=== PATIENT | female | born 1985 | race Caucasian/White ===

== ENCOUNTER 2017-01-06 16:26 | Emergency (ER) | payer OTHER ==
[~2017-01-06] VITALS: Ht 162.6 cm; Wt 107.8 kg
[2017-01-06 17:20] LABS: MCV 88.2 FL (83-99); PLATELET COUNT 232 K/uL (156-360); RBC DIS.WIDTH-CV 12.9 % (11.8-14.6); RBC DIS.WIDTH-SD 41.1 % (39-53); RED BLOOD COUNT 4.76 M/uL (3.80-5.20); WHITE BLOOD COUNT 10.2 K/uL (4.1-10.2)
[2017-01-06 17:36] LABS: CHLORIDE 110 mEq/L (99-109); POTASSIUM 4.3 mEq/L (3.7-5.4)
[2017-01-06 17:37] LABS: SODIUM 142 mEq/L (136-147)
[2017-01-06 17:38] LABS: GLUCOSE 149 mg/dL (70-99)
[2017-01-06 17:40] LABS: ANION GAP 10 MEQ/L (2-14)
[2017-01-06 17:42] LABS: GFR ESTIMATE (CALCULATED) > 59 mL/min/
[2017-01-06 17:43] LABS: UREA NITROGEN (BUN) 14 mg/dL (9-23)
[2017-01-06 17:50] LABS: QUANTITATIVE HCG < 4.0 MIU/ML
[2017-01-06] MEDS ORDERED: PREDNISONE10 MG PO (19:05)
[2017-01-06] MEDS ORDERED: LIDOCAINE HCL120 GM TP (19:06)
[2017-01-06] MEDS ORDERED: FLEXERIL10 MG PO (19:06)
[2017-01-06] MEDS ORDERED: TYLENOL PM1 CAPLET PO (19:06)
[2017-01-06 22:00] VITALS: BP 108/68
== END 2017-01-06 22:35 | disposition short-term general hospital (02) ==
LOC: EME 16:26
PROVIDERS: Emergency Medicine
DX: G83.4 Cauda equina syndrome (principal); J45.909 Unspecified asthma, uncomplicated
CPT/HCPCS: 72148; 80048; 84702; 85027; 99281; 99285; J1100; J1885; J2060; J2270; J2405; J3010; J7030

== ENCOUNTER 2017-01-22 12:52 | Inpatient (IN) | payer OTHER ==
[~2017-01-22] VITALS: Ht 162.6 cm; Wt 106.0 kg
[~2017-01-22 12:52] MED LIST: FLEXERIL10 MG PO; LIDOCAINE HCL120 GM TP; PREDNISONE10 MG PO; TYLENOL PM1 CAPLET PO
[2017-01-22] MEDS ORDERED: OXYCODONE HCL5 MG PO (14:27)
[2017-01-22] MEDS ORDERED: PROAIR HFA8.5 GM IH (14:34)
[2017-01-22] MEDS ORDERED: HYDROMORPHONE HC2 MG PO (14:34)
[2017-01-22 15:18] LABS: EOSINOPHIL (%) 0 % (0-5); HEMATOCRIT 45.5 % (36.0-46.0); IMMATURE GRANULOCYTE (%) 0.5 % (0.0-0.7); IMMATURE GRANULOCYTE COUNT 0.1 K/uL; INSTRUMENT ABS NEUTROPHIL CT 8.7 K/uL; MCH 29.6 PG (29.0-34.0); MCV 89.9 FL (83-99); MONOCYTE (%) 4.9 % (3-12); MONOCYTE COUNT 0.6 K/uL (0-0.8); NEUTROPHIL (%) 76.6 % (45-76); NEUTROPHIL COUNT 8.7 K/uL (1.8-6.4); PLATELET COUNT 236 K/uL (156-360); RBC DIS.WIDTH-CV 12.6 % (11.8-14.6); RBC DIS.WIDTH-SD 41.4 % (39-53); RED BLOOD COUNT 5.06 M/uL (3.80-5.20); WHITE BLOOD COUNT 11.3 K/uL (4.1-10.2)
[2017-01-22 15:29] LABS: CHLORIDE 107 mEq/L (99-109); POTASSIUM 4.4 mEq/L (3.7-5.4); SODIUM 143 mEq/L (136-147)
[2017-01-22 15:31] LABS: GLUCOSE 80 mg/dL (70-99)
[2017-01-22 15:32] LABS: ANION GAP 14 MEQ/L (2-14)
[2017-01-22 15:35] LABS: GFR ESTIMATE (CALCULATED) > 59 mL/min/
[2017-01-22 15:36] LABS: UREA NITROGEN (BUN) 12 mg/dL (9-23)
[2017-01-22] MEDS ORDERED: MELATONIN10 M1 PO (21:17)
[2017-01-22] MEDS ORDERED: TYLENOL REGULA325 MG PO (21:18)
[2017-01-23 02:01] VITALS: BP 108/68
[2017-01-23 03:18] LABS: ADD MIUA? YES; BILIRUBIN NEGATIVE; BLOOD NEGATIVE; COLOR YELLOW ((YELLOW)); GLUCOSE (STRIP) NEGATIVE; KETONES NEGATIVE; LEUKOCYTES NEGATIVE; NITRITE NEGATIVE; PROTEIN (STRIP) NEGATIVE; SPECIFIC GRAVITY 1.026 (1.000-1.030); UROBILINOGEN 0.2 MG/DL (0.2-1.0)
[2017-01-23 03:31] LABS: BACTERIA 1+ /HPF; EPITHELIAL CELLS 1+ /HPF; MUCUS 3+ /LPF; UCUL ADDED? NO; WHITE BLOOD CELLS 0-5 /HPF (0-5)
[2017-01-23 03:57] VITALS: BP 117/65
[2017-01-23 09:29] VITALS: BP 140/85
[2017-01-23 12:55] VITALS: BP 134/84
[2017-01-23] MEDS ORDERED: MACROBID100 MG PO (13:37)
[2017-01-23] MEDS ORDERED: OXAYDO5 MG PO (14:52)
[2017-01-23 16:03] VITALS: BP 125/74
[2017-01-23 20:00] VITALS: BP 131/60
[2017-01-24 03:37] VITALS: BP 123/60
[2017-01-24 07:20] LABS: MCH 29.3 PG (29.0-34.0); MCHC 32.4 G/DL (30.0-36.0); MCV 90.3 FL (83-99); MEAN PLAT.VOLUME 10.5 uM^3 (9.5-12.4); PLATELET COUNT 233 K/uL (156-360); RBC DIS.WIDTH-CV 12.2 % (11.8-14.6); RBC DIS.WIDTH-SD 40.8 % (39-53); RED BLOOD COUNT 4.54 M/uL (3.80-5.20); WHITE BLOOD COUNT 10.7 K/uL (4.1-10.2)
[2017-01-24 07:42] LABS: ANION GAP 5 MEQ/L (2-14); CHLORIDE 105 MEQ/L (99-109); GFR ESTIMATE (CALCULATED) > 59 mL/min/; POTASSIUM 4.3 MEQ/L (3.7-5.4); SAMPLE HEMOLYSIS CHECK 0; SAMPLE ICTERIC CHECK 0; SAMPLE LIPEMIA CHECK 0; SODIUM 136 MEQ/L (136-147); UREA NITROGEN (BUN) 18 mg/dL (9-23)
[2017-01-24 07:43] LABS: GLUCOSE 110 mg/dL (70-99)
[2017-01-24 07:48] VITALS: BP 126/74
[2017-01-24 07:54] VITALS: BP 144/71
[2017-01-24 12:03] VITALS: BP 137/79
[2017-01-24 15:54] VITALS: BP 140/79
== END 2017-01-24 18:12 | disposition home or self-care (01) | DRG 565 ==
LOC: EME 12:52 → EDOF 01-23 01:14 → 5WEST 01-23 01:48
PROVIDERS: Hospitalist; Physician Assistant Medical
DX: D36.10 Benign neoplasm of peripheral nerves and autonomic nervous system, unspecified (principal); N39.0 Urinary tract infection, site not specified; Z68.41 Body mass index [BMI] 40.0-44.9, adult; M54.5 Low back pain; R15.9 Full incontinence of feces; K27.9 Peptic ulcer, site unspecified, unspecified as acute or chronic, without hemorrhage or perforation
CPT/HCPCS: 72158; 80048; 81003; 85025; 85027; 94640; 94640 76; 99202; 99281; 99285; J0696; J1100; J1170; J1200; J1650; J1885; J2060; J2270; J2405; J2930; J3010; J7050

== ENCOUNTER 2017-02-07 19:32 | Emergency (ER) | payer OTHER ==
[~2017-02-07] VITALS: Ht 165.1 cm; Wt 104.5 kg
[~2017-02-07 19:32] MED LIST changes: +HYDROMORPHONE HC2 MG PO; +MACROBID100 MG PO; +MELATONIN10 M1 PO; +OXAYDO5 MG PO; +OXYCODONE HCL5 MG PO; +PROAIR HFA8.5 GM IH; +TYLENOL REGULA325 MG PO
[2017-02-07 22:49] LABS: CHLORIDE 107 mEq/L (99-109); POTASSIUM 3.9 mEq/L (3.7-5.4); SODIUM 139 mEq/L (136-147)
[2017-02-07 22:52] LABS: ANION GAP 11 MEQ/L (2-14); GLUCOSE 86 mg/dL (70-99)
[2017-02-07 22:55] LABS: GFR ESTIMATE (CALCULATED) > 59 mL/min/
[2017-02-07 22:56] LABS: UREA NITROGEN (BUN) 12 mg/dL (9-23)
[2017-02-07 23:05] LABS: QUANTITATIVE HCG < 4.0 MIU/ML
[2017-02-08 00:26] LABS: HEMATOCRIT 40.2 % (36.0-46.0); MCH 29.6 PG (29.0-34.0); MCHC 33.1 G/DL (30.0-36.0); MCV 89.5 FL (83-99); PLATELET COUNT 255 K/uL (156-360); RBC DIS.WIDTH-CV 12.5 % (11.8-14.6); RBC DIS.WIDTH-SD 40.5 % (39-53); RED BLOOD COUNT 4.49 M/uL (3.80-5.20); WHITE BLOOD COUNT 9.7 K/uL (4.1-10.2)
[2017-02-08] MEDS ORDERED: OXAYDO5 MG PO (01:19)
[2017-02-08 01:24] LABS: ADD MIUA? YES; BILIRUBIN NEGATIVE; BLOOD NEGATIVE; COLOR YELLOW ((YELLOW)); GLUCOSE (STRIP) NEGATIVE; KETONES NEGATIVE; LEUKOCYTES NEGATIVE; NITRITE NEGATIVE; PROTEIN (STRIP) NEGATIVE; SPECIFIC GRAVITY 1.018 (1.000-1.030); UROBILINOGEN 0.2 MG/DL (0.2-1.0)
[2017-02-08 01:28] LABS: BACTERIA NONE SEEN /HPF; EPITHELIAL CELLS 1+ /HPF; MUCUS TRACE /LPF; RED BLOOD CELLS 0-5 /HPF (0-5); UCUL ADDED? NO; WHITE BLOOD CELLS 0-5 /HPF (0-5)
[2017-02-08 02:04] VITALS: BP 127/83
== END 2017-02-08 02:05 | disposition home or self-care (01) ==
LOC: EME 19:32
PROVIDERS: Emergency Medicine
DX: R42 Dizziness and giddiness (principal); M54.16 Radiculopathy, lumbar region; D48.0 Neoplasm of uncertain behavior of bone and articular cartilage; F17.200 Nicotine dependence, unspecified, uncomplicated; Z91.040 Latex allergy status
CPT/HCPCS: 70450; 80048; 81003; 84702; 85025; 85025 91; 85027; 93005; 99281; 99285; J1100; J2270; J2405; J7030

== ENCOUNTER 2017-03-05 09:00 | Emergency (ER) | payer OTHER ==
[~2017-03-05] VITALS: Ht 162.6 cm; Wt 108.9 kg
[2017-03-05 13:34] LABS: HEMATOCRIT 42.3 % (36.0-46.0); MCH 29.4 PG (29.0-34.0); MCHC 33.1 G/DL (30.0-36.0); MCV 88.9 FL (83-99); MEAN PLAT.VOLUME 9.9 uM^3 (9.5-12.4); PLATELET COUNT 251 K/uL (156-360); RBC DIS.WIDTH-CV 12.5 % (11.8-14.6); RBC DIS.WIDTH-SD 41.2 % (39-53); RED BLOOD COUNT 4.76 M/uL (3.80-5.20); WHITE BLOOD COUNT 9.5 K/uL (4.1-10.2)
[2017-03-05 13:41] LABS: CHLORIDE 108 mEq/L (99-109); POTASSIUM 3.9 mEq/L (3.7-5.4); SODIUM 141 mEq/L (136-147)
[2017-03-05 13:43] LABS: GLUCOSE 92 mg/dL (70-99)
[2017-03-05 13:44] LABS: ANION GAP 9 MEQ/L (2-14)
[2017-03-05 13:47] LABS: GFR ESTIMATE (CALCULATED) > 59 mL/min/
[2017-03-05 13:48] LABS: UREA NITROGEN (BUN) 9 mg/dL (9-23)
[2017-03-05 13:55] LABS: QUANTITATIVE HCG < 4.0 MIU/ML
[2017-03-05 20:14] VITALS: BP 122/90
== END 2017-03-05 20:15 | disposition home or self-care (01) ==
LOC: EME 09:00
PROVIDERS: Emergency Medicine
DX: D49.2 Neoplasm of unspecified behavior of bone, soft tissue, and skin (principal); M54.16 Radiculopathy, lumbar region; R15.9 Full incontinence of feces; G89.29 Other chronic pain; F32.9 Major depressive disorder, single episode, unspecified; J44.9 Chronic obstructive pulmonary disease, unspecified; G43.909 Migraine, unspecified, not intractable, without status migrainosus; K21.9 Gastro-esophageal reflux disease without esophagitis; F17.200 Nicotine dependence, unspecified, uncomplicated
CPT/HCPCS: 72158; 80048; 84702; 85027; 93971; 99281; 99285; J2060; J2270; J3010

== ENCOUNTER 2017-09-20 04:21 | Emergency (ER) | payer OTHER ==
[~2017-09-20] VITALS: Ht 162.6 cm; Wt 101.1 kg
[2017-09-20 05:01] LABS: HEMATOCRIT 45.9 % (36.0-46.0); MCH 28.9 PG (29.0-34.0); MCHC 33.6 G/DL (30.0-36.0); MCV 86.3 FL (83-99); MEAN PLAT.VOLUME 10.6 uM^3 (9.5-12.4); PLATELET COUNT 247 K/uL (156-360); RBC DIS.WIDTH-CV 13.3 % (11.8-14.6); RBC DIS.WIDTH-SD 41.5 % (39-53); RED BLOOD COUNT 5.32 M/uL (3.80-5.20)
[2017-09-20 05:07] LABS: ADD MIUA? NO; BILIRUBIN NEGATIVE; BLOOD NEGATIVE; COLOR STRAW ((YELLOW)); GLUCOSE (STRIP) NEGATIVE; KETONES NEGATIVE; LEUKOCYTES NEGATIVE; NITRITE NEGATIVE; PROTEIN (STRIP) NEGATIVE; SPECIFIC GRAVITY 1.006 (1.000-1.030); UROBILINOGEN 0.2 MG/DL (0.2-1.0)
[2017-09-20 05:14] LABS: CHLORIDE 111 mEq/L (99-109); POTASSIUM 3.9 mEq/L (3.7-5.4); SODIUM 145 mEq/L (136-147)
[2017-09-20 05:15] LABS: AMPHETAMINE NEGATIVE (500 ng/mL); BARBITURATES NEGATIVE (200 ng/mL); BENZODIAZEPINES PRESUMPTIVE POSITIVE (150 ng/mL); COCAINE NEGATIVE (150 ng/mL); INTERNAL CONTROLS VALID? YES; METHADONE NEGATIVE (200 ng/mL); METHAMPHETAMINE NEGATIVE (500 ng/mL); OPIATES (MORPHINE) PRESUMPTIVE POSITIVE (100 ng/mL); OXYCODONE PRESUMPTIVE POSITIVE (100 ng/mL); PHENCYCLIDINE NEGATIVE (25 ng/mL); PROPOXYPHENE NEGATIVE (300 ng/mL); THC CANNABINOIDS NEGATIVE (50 ng/mL); TRICYCLIC ANTIDEPRESSANTS NEGATIVE (300 ng/mL)
[2017-09-20 05:16] LABS: GLUCOSE 119 mg/dL (70-99)
[2017-09-20 05:16] LABS: ADD MEDTOX COMMENT Y
[2017-09-20 05:17] LABS: ANION GAP 11 MEQ/L (2-14)
[2017-09-20 05:18] LABS: TOTAL BILIRUBIN 0.2 mg/dL (0.0-1.0)
[2017-09-20 05:19] LABS: SERUM ETHYL ALCOHOL 262 mg/dL
[2017-09-20 05:20] LABS: GFR ESTIMATE (CALCULATED) > 59 mL/min/
[2017-09-20 05:21] LABS: ALKALINE PHOSPHATASE 75 IU/L (3-129)
[2017-09-20 05:22] LABS: UREA NITROGEN (BUN) 9 mg/dL (9-23)
[2017-09-20 05:23] LABS: QUANTITATIVE HCG < 4.0 MIU/ML; SALICYLATE < 5.0 MG/DL (15-30)
[2017-09-20 05:54] LABS: BENZODIAZEPINES QUANT VALUE 0 NG/ML; BENZODIAZEPINES, URINE SCREEN Negative (200 ng/mL); OPIATES QUANTITATIVE VALUE 0 NG/ML
[2017-09-20 12:26] VITALS: BP 115/66
== END 2017-09-20 12:32 | disposition home or self-care (01) ==
LOC: EME → EDBD 04:21 → EME 12:32
PROVIDERS: Emergency Medicine
DX: T51.0X1A Toxic effect of ethanol, accidental (unintentional), initial encounter (principal); F10.129 Alcohol abuse with intoxication, unspecified; Y90.8 Blood alcohol level of 240 mg/100 ml or more; Z79.891 Long term (current) use of opiate analgesic; G89.29 Other chronic pain; J44.9 Chronic obstructive pulmonary disease, unspecified; F17.200 Nicotine dependence, unspecified, uncomplicated
CPT/HCPCS: 80053; 81003; 84702; 84999; 85027; 93005; 99281; 99285; G0480; J2310; J2405; J7030

== ENCOUNTER 2017-11-15 19:13 | Inpatient (IN) | payer OTHER ==
[~2017-11-15] VITALS: Ht 160 cm; Wt 103.0 kg
[2017-11-15 19:42] LABS: HEMATOCRIT 46.8 % (36.0-46.0); HEMOGLOBIN 15.2 G/DL (11.9-15.5); MCH 29.5 PG (29.0-34.0); MCHC 32.5 G/DL (30.0-36.0); MCV 90.9 FL (83-99); PLATELET COUNT 225 K/uL (156-360); RBC DIS.WIDTH-CV 13.9 % (11.8-14.6); RED BLOOD COUNT 5.15 M/uL (3.80-5.20)
[2017-11-15 20:20] LABS: CHLORIDE 106 mEq/L (99-109); POTASSIUM 3.7 mEq/L (3.7-5.4); SODIUM 141 mEq/L (136-147)
[2017-11-15 20:22] LABS: GLUCOSE 104 mg/dL (70-99)
[2017-11-15 20:26] LABS: CREATININE 0.8 mg/dL (0.6-1.3); GFR ESTIMATE (CALCULATED) > 59 mL/min/
[2017-11-15 20:27] LABS: UREA NITROGEN (BUN) 10 mg/dL (9-23)
[2017-11-15] MEDS ORDERED: PERCOCET 7.51 TABLET PO (20:50)
[2017-11-15] MEDS ORDERED: ADVIL200 MG PO (20:51)
[2017-11-15] MEDS ORDERED: MOBIC15 MG PO (20:51)
[2017-11-15] MEDS ORDERED: NEURONTIN300 MG PO (20:51)
[2017-11-15] MEDS ORDERED: VICKS VAPORUB O50 GM TP (20:52)
[2017-11-15] MEDS ORDERED: ROBITUSSIN100 MG/5 M PO (20:52)
[2017-11-15 22:46] LABS: BASE EXCESS 1.9 mEq/L (-3 to +3); BICARBONATE 25.7 mEq/L (22-26); CARBOXY HGB 1.6 % (0-5); METHEMOGLOBIN 1.1 % (0-1.5); PCO2 37 mm Hg (35-45); PO2 65 mm Hg (80-100); pH 7.45 (7.35-7.45)
[2017-11-15 22:47] LABS: COMMENTS - BLOOD GASES C+; DEVICE NC; O2 FLOW 2 L/MIN; SITE RR; TOTAL RESP RATE 24 resp/min
[2017-11-16 07:11] LABS: HEMATOCRIT 40.1 % (36.0-46.0); HEMOGLOBIN 13.3 G/DL (11.9-15.5); MCHC 33.2 G/DL (30.0-36.0); MCV 90.5 FL (83-99); PLATELET COUNT 182 K/uL (156-360); RBC DIS.WIDTH-CV 13.7 % (11.8-14.6); RBC DIS.WIDTH-SD 46.3 % (39-53); RED BLOOD COUNT 4.43 M/uL (3.80-5.20); WHITE BLOOD COUNT 6.6 K/uL (4.1-10.2)
[2017-11-16 09:17] LABS: CHLORIDE 107 mEq/L (99-109); POTASSIUM 3.9 mEq/L (3.7-5.4); SODIUM 139 mEq/L (136-147)
[2017-11-16 09:20] LABS: GLUCOSE 158 mg/dL (70-99)
[2017-11-16 09:22] LABS: CREATININE 0.8 mg/dL (0.6-1.3); GFR ESTIMATE (CALCULATED) > 59 mL/min/
[2017-11-16 09:23] LABS: UREA NITROGEN (BUN) 12 mg/dL (9-23)
[2017-11-16 18:36] VITALS: BP 141/89
[2017-11-16 20:56] VITALS: BP 137/78
[2017-11-16 23:10] LABS: CHLORIDE 104 MEQ/L (99-109); CREATININE 0.6 MG/DL (0.6-1.3); GFR ESTIMATE (CALCULATED) > 59 mL/min/; MAGNESIUM 2.2 mg/dl (1.3-2.7); PHOSPHORUS 2.3 mg/dL (2.5-4.9); POTASSIUM 4.1 MEQ/L (3.7-5.4); SODIUM 141 MEQ/L (136-147); UREA NITROGEN (BUN) 13 mg/dL (9-23)
[2017-11-16 23:11] LABS: GLUCOSE 116 mg/dL (70-99)
[2017-11-17 00:22] VITALS: BP 151/77
[2017-11-17 07:41] VITALS: BP 143/78
[2017-11-17 12:00] VITALS: BP 129/83
[2017-11-17 16:00] VITALS: BP 146/81
[2017-11-17 19:52] VITALS: BP 143/93
[2017-11-18 00:50] VITALS: BP 163/94
[2017-11-18 05:01] VITALS: BP 137/89
[2017-11-18 07:32] VITALS: BP 143/76
[2017-11-18 09:52] LABS: TROP-I INTERPRETATION NEGATIVE; TROPONIN-I < 0.01 ng/mL (0.0-0.30)
[2017-11-18 11:13] VITALS: BP 125/78
[2017-11-18 15:53] VITALS: BP 127/94
[2017-11-18 19:39] VITALS: BP 127/86
[2017-11-19 00:56] VITALS: BP 137/73
[2017-11-19 04:46] VITALS: BP 130/86
[2017-11-19 07:18] VITALS: BP 131/81
[2017-11-19] MEDS ORDERED: ALBUTEROL2.5 MG/0.5 AEROSOL (10:30)
[2017-11-19] MEDS ORDERED: SPIRIVA1 INHALATI IH (10:30)
[2017-11-19] MEDS ORDERED: DIAZEPAM2 MG PO (10:30)
[2017-11-19] MEDS ORDERED: BUPROPION HCL150 M2 PO (10:30)
[2017-11-19] MEDS ORDERED: ADVAIR HFA120 INHAL1 IH (10:30)
[2017-11-19] MEDS ORDERED: MYCOSTATIN 100,60 ML PO (10:30)
[2017-11-19] MEDS ORDERED: MONTELUKAST SOD10 MG PO (10:30)
[2017-11-19] MEDS ORDERED: PREDNISONE10 MG PO (10:30)
[2017-11-19] MEDS ORDERED: FAMOTIDINE20 MG PO (10:30)
[2017-11-19] MEDS ORDERED: PROAIR HFA8.5 GM IH (10:30)
== END 2017-11-19 11:42 | disposition home or self-care (01) | DRG 202 ==
LOC: EME 19:13 → EDOF 20:51 → ENRESERV 21:01 → EDOF 11-16 02:57 → ENRESERV 11-16 03:33 → CANRESERV 11-16 03:33 → ENRESERV 11-16 04:25 → 5SOUTH 11-16 17:25
PROVIDERS: Hospitalist; Internal Medicine; Physician Assistant Medical
DX: J45.51 Severe persistent asthma with (acute) exacerbation (principal); J96.01 Acute respiratory failure with hypoxia; F33.9 Major depressive disorder, recurrent, unspecified; K21.9 Gastro-esophageal reflux disease without esophagitis; J43.9 Emphysema, unspecified; G89.4 Chronic pain syndrome; J20.9 Acute bronchitis, unspecified; F41.1 Generalized anxiety disorder; F17.210 Nicotine dependence, cigarettes, uncomplicated; E66.9 Obesity, unspecified; F41.0 Panic disorder [episodic paroxysmal anxiety]; I73.9 Peripheral vascular disease, unspecified; R00.0 Tachycardia, unspecified; J39.8 Other specified diseases of upper respiratory tract; G43.909 Migraine, unspecified, not intractable, without status migrainosus; M62.838 Other muscle spasm; Z90.710 Acquired absence of both cervix and uterus; Z79.51 Long term (current) use of inhaled steroids; Z91.040 Latex allergy status
CPT/HCPCS: 36600; 71046; 80048; 80048 91; 82785 90; 82803; 83735; 84100; 84484; 85027; 87502; 93005; 94640; 94640 76; 94644; 94799; 99202; 99281; 99285; G0378; J1644; J1885; J2060; J2270; J2920; J2930; J3475; J7030; J7512

== ENCOUNTER 2018-02-06 18:47 | Emergency (ER) | payer OTHER ==
[~2018-02-06] VITALS: Ht 160 cm; Wt 110.2 kg
[~2018-02-06 18:47] MED LIST changes: +ADVAIR HFA120 INHAL1 IH; +ADVIL200 MG PO; +ALBUTEROL2.5 MG/0.5 AEROSOL; +BUPROPION HCL150 M2 PO; +DIAZEPAM2 MG PO; +FAMOTIDINE20 MG PO; +MOBIC15 MG PO; +MONTELUKAST SOD10 MG PO; +MYCOSTATIN 100,60 ML PO; +NEURONTIN300 MG PO; +PERCOCET 7.51 TABLET PO; +ROBITUSSIN100 MG/5 M PO; +SPIRIVA1 INHALATI IH; +VICKS VAPORUB O50 GM TP
[2018-02-06] MEDS ORDERED: PREDNISONE20 MG PO (21:15)
[2018-02-06] MEDS ORDERED: VALIUM5 MG PO (21:15)
[2018-02-06] MEDS ORDERED: LIDODERM 5% P1 PATCH TD (21:15)
[2018-02-07 00:50] VITALS: BP 130/87
== END 2018-02-07 00:51 | disposition home or self-care (01) ==
LOC: EXP 18:47 → EME 18:47 → EXP 02-07 00:51
DX: S39.012A Strain of muscle, fascia and tendon of lower back, initial encounter (principal); M54.42 Lumbago with sciatica, left side; G89.29 Other chronic pain; M48.061 Spinal stenosis, lumbar region without neurogenic claudication; F43.10 Post-traumatic stress disorder, unspecified; F32.9 Major depressive disorder, single episode, unspecified; F17.200 Nicotine dependence, unspecified, uncomplicated; Z90.710 Acquired absence of both cervix and uterus; Z91.040 Latex allergy status; Z91.018 Allergy to other foods
CPT/HCPCS: 99281; 99285; J1885; J2930; J3010; J7050; J7512

== ENCOUNTER 2018-03-21 23:06 | Emergency (ER) | payer OTHER ==
[~2018-03-21] VITALS: Ht 162.6 cm; Wt 110.0 kg
[~2018-03-21 23:06] MED LIST changes: +LIDODERM 5% P1 PATCH TD; +PREDNISONE20 MG PO; +VALIUM5 MG PO
[2018-03-21 23:26] LABS: APPEARANCE SL.HAZY ((CLEAR)); BILIRUBIN NEGATIVE; BLOOD NEGATIVE; COLOR YELLOW ((YELLOW)); GLUCOSE (STRIP) NEGATIVE; KETONES 5; LEUKOCYTES NEGATIVE; NITRITE NEGATIVE; PROTEIN (STRIP) 30; SPECIFIC GRAVITY 1.034 (1.000-1.030); UROBILINOGEN 0.2 MG/DL (0.2-1.0)
[2018-03-21 23:30] LABS: BACTERIA NONE SEEN /HPF; EPITHELIAL CELLS 4+ /HPF; MUCUS 1+ /LPF; UCUL ADDED? NO; WHITE BLOOD CELLS 0-5 /HPF (0-5)
[2018-03-21 23:37] LABS: HEMATOCRIT 43.2 % (36.0-46.0); HEMOGLOBIN 14.5 G/DL (11.9-15.5); MCH 30.7 PG (29.0-34.0); MCHC 33.6 G/DL (30.0-36.0); MCV 91.3 FL (83-99); PLATELET COUNT 251 K/uL (156-360); RBC DIS.WIDTH-CV 12.6 % (11.8-14.6); RBC DIS.WIDTH-SD 41.9 % (39-53); RED BLOOD COUNT 4.73 M/uL (3.80-5.20); WHITE BLOOD COUNT 9.7 K/uL (4.1-10.2)
[2018-03-21 23:59] LABS: ALBUMIN 4.4 g/dL (3.2-4.8)
[2018-03-22] LABS: CHLORIDE 106 mEq/L (99-109); POTASSIUM 4.7 mEq/L (3.7-5.4); SODIUM 142 mEq/L (136-147)
[2018-03-22 00:02] LABS: GLUCOSE 105 mg/dL (70-99); TOTAL PROTEIN 7.3 g/dL (6.4-8.3)
[2018-03-22 00:04] LABS: TOTAL BILIRUBIN 0.4 mg/dL (0.0-1.0)
[2018-03-22 00:05] LABS: ALKALINE PHOSPHATASE 73 IU/L (3-129)
[2018-03-22 00:06] LABS: CREATININE 0.8 mg/dL (0.6-1.3); GFR ESTIMATE (CALCULATED) > 59 mL/min/
[2018-03-22 00:07] LABS: AST (GOT) 35 IU/L (2-34); UREA NITROGEN (BUN) 15 mg/dL (9-23)
[2018-03-22 00:08] LABS: ALT (GPT) 31 IU/L (3-49)
[2018-03-22 00:09] LABS: LIPASE 22 U/L (1.0-51.0)
[2018-03-22 00:14] LABS: QUANTITATIVE HCG < 4.0 MIU/ML
[2018-03-22] MEDS ORDERED: OMEPRAZOLE40 M1 PO (02:04)
[2018-03-22] MEDS ORDERED: ZOFRAN ODT4 MG PO (02:04)
[2018-03-22 02:21] VITALS: BP 126/84
== END 2018-03-22 02:22 | disposition home or self-care (01) ==
LOC: EME 23:06
DX: K29.70 Gastritis, unspecified, without bleeding (principal); J44.9 Chronic obstructive pulmonary disease, unspecified; Z90.710 Acquired absence of both cervix and uterus; F17.200 Nicotine dependence, unspecified, uncomplicated
CPT/HCPCS: 74176; 80053; 81003; 83690; 84702; 85027; 99281; 99285

== ENCOUNTER 2018-04-07 21:54 | Emergency (ER) | payer OTHER ==
[~2018-04-07] VITALS: Ht 162.6 cm; Wt 93.2 kg
[~2018-04-07 21:54] MED LIST changes: +OMEPRAZOLE40 M1 PO; +ZOFRAN ODT4 MG PO
[2018-04-07 22:57] LABS: APPEARANCE SL.HAZY ((CLEAR)); BILIRUBIN NEGATIVE; BLOOD NEGATIVE; COLOR STRAW ((YELLOW)); GLUCOSE (STRIP) NEGATIVE; KETONES NEGATIVE; LEUKOCYTES NEGATIVE; NITRITE NEGATIVE; PROTEIN (STRIP) NEGATIVE; SPECIFIC GRAVITY 1.008 (1.000-1.030); UROBILINOGEN 0.2 MG/DL (0.2-1.0)
[2018-04-07 23:00] LABS: BACTERIA RARE /HPF; EPITHELIAL CELLS 2+ /HPF; MUCUS NONE SEEN /LPF; RED BLOOD CELLS 0-5 /HPF (0-5)
[2018-04-07 23:17] LABS: AMPHETAMINE NEGATIVE (500 ng/mL); BARBITURATES NEGATIVE (200 ng/mL); BENZODIAZEPINES NEGATIVE (150 ng/mL); BUPRENORPHINE NEGATIVE (10 ng/mL); COCAINE PRESUMPTIVE POSITIVE (150 ng/mL); METHADONE NEGATIVE (200 ng/mL); METHAMPHETAMINE NEGATIVE (500 ng/mL); OPIATES (MORPHINE) NEGATIVE (100 ng/mL); OXYCODONE NEGATIVE (100 ng/mL); PHENCYCLIDINE NEGATIVE (25 ng/mL); PROPOXYPHENE NEGATIVE (300 ng/mL); THC CANNABINOIDS NEGATIVE (50 ng/mL); TRICYCLIC ANTIDEPRESSANTS NEGATIVE (300 ng/mL)
[2018-04-07 23:20] LABS: HEMATOCRIT 45.3 % (36.0-46.0); HEMOGLOBIN 15.3 G/DL (11.9-15.5); MCH 30.5 PG (29.0-34.0); MCHC 33.8 G/DL (30.0-36.0); MCV 90.2 FL (83-99); PLATELET COUNT 269 K/uL (156-360); RBC DIS.WIDTH-CV 12.8 % (11.8-14.6); RBC DIS.WIDTH-SD 41.8 % (39-53); RED BLOOD COUNT 5.02 M/uL (3.80-5.20); WHITE BLOOD COUNT 10.6 K/uL (4.1-10.2)
[2018-04-07 23:33] LABS: ALBUMIN 4.8 g/dL (3.2-4.8); CHLORIDE 109 mEq/L (99-109); POTASSIUM 3.4 mEq/L (3.7-5.4); SODIUM 147 mEq/L (136-147)
[2018-04-07 23:36] LABS: GLUCOSE 91 mg/dL (70-99); TOTAL PROTEIN 8.1 g/dL (6.4-8.3)
[2018-04-07 23:38] LABS: TOTAL BILIRUBIN 0.4 mg/dL (0.0-1.0)
[2018-04-07 23:39] LABS: CREATININE 0.9 mg/dL (0.6-1.3); GFR ESTIMATE (CALCULATED) > 59 mL/min/; SERUM ETHYL ALCOHOL 272 mg/dL
[2018-04-07 23:40] LABS: ALKALINE PHOSPHATASE 79 IU/L (3-129)
[2018-04-07 23:41] LABS: AST (GOT) 15 IU/L (2-34); UREA NITROGEN (BUN) 10 mg/dL (9-23)
[2018-04-07 23:43] LABS: ACETAMINOPHEN (TYLENOL) < 10 mcg/mL (10-30); ALT (GPT) 15 IU/L (3-49); SALICYLATE < 5.0 MG/DL (15-30)
[2018-04-07 23:49] LABS: QUANTITATIVE HCG < 4.0 MIU/ML
[2018-04-08 06:36] VITALS: BP 133/80
== END 2018-04-08 06:38 | disposition home or self-care (01) ==
LOC: EME 21:54
PROVIDERS: Emergency Medicine
DX: T50.902A Poisoning by unspecified drugs, medicaments and biological substances, intentional self-harm, initial encounter (principal); F10.129 Alcohol abuse with intoxication, unspecified; R45.851 Suicidal ideations; J44.9 Chronic obstructive pulmonary disease, unspecified; K21.9 Gastro-esophageal reflux disease without esophagitis; F43.10 Post-traumatic stress disorder, unspecified; F32.9 Major depressive disorder, single episode, unspecified; F31.9 Bipolar disorder, unspecified; F17.200 Nicotine dependence, unspecified, uncomplicated; Y90.8 Blood alcohol level of 240 mg/100 ml or more; Z79.891 Long term (current) use of opiate analgesic; Z87.39 Personal history of other diseases of the musculoskeletal system and connective tissue; Z90.710 Acquired absence of both cervix and uterus; Z85.9 Personal history of malignant neoplasm, unspecified; Z91.040 Latex allergy status
CPT/HCPCS: 80053; 81003; 84702; 84999; 85027; 90837; 94640; 99281; 99285; G0480; J1630; J2060

== ENCOUNTER 2018-05-20 09:00 | Emergency (ER) | payer OTHER ==
[~2018-05-20] VITALS: Ht 161.3 cm; Wt 109.1 kg
[2018-05-20 11:30] VITALS: BP 128/91
== END 2018-05-20 11:31 | disposition home or self-care (01) ==
LOC: EME 09:00
DX: S63.91XA Sprain of unspecified part of right wrist and hand, initial encounter (principal); S06.0X0A Concussion without loss of consciousness, initial encounter; S61.411A Laceration without foreign body of right hand, initial encounter; Y09 Assault by unspecified means; F17.200 Nicotine dependence, unspecified, uncomplicated; J45.909 Unspecified asthma, uncomplicated; F32.9 Major depressive disorder, single episode, unspecified; J43.9 Emphysema, unspecified; K21.9 Gastro-esophageal reflux disease without esophagitis; F41.9 Anxiety disorder, unspecified; Z85.3 Personal history of malignant neoplasm of breast; Z87.19 Personal history of other diseases of the digestive system
CPT/HCPCS: 70450; 73110; 73130; 99281; 99284

== ENCOUNTER 2018-05-26 20:03 | Emergency (ER) | payer OTHER ==
[~2018-05-26] VITALS: Ht 160 cm; Wt 110.8 kg
[2018-05-26 21:40] LABS: HEMATOCRIT 40.9 % (36.0-46.0); MCH 30.6 PG (29.0-34.0); MCHC 34.2 G/DL (30.0-36.0); MCV 89.5 FL (83-99); PLATELET COUNT 145 K/uL (156-360); RBC DIS.WIDTH-SD 42.5 % (39-53); RED BLOOD COUNT 4.57 M/uL (3.80-5.20); WHITE BLOOD COUNT 4.3 K/uL (4.1-10.2)
[2018-05-26 21:52] LABS: ALBUMIN 4.2 g/dL (3.2-4.8); CHLORIDE 110 mEq/L (99-109)
[2018-05-26 21:53] LABS: POTASSIUM 3.8 mEq/L (3.7-5.4); SODIUM 142 mEq/L (136-147)
[2018-05-26 21:55] LABS: GLUCOSE 100 mg/dL (70-99); TOTAL PROTEIN 7.3 g/dL (6.4-8.3)
[2018-05-26 21:57] LABS: TOTAL BILIRUBIN 0.3 mg/dL (0.0-1.0)
[2018-05-26 21:58] LABS: ALKALINE PHOSPHATASE 69 IU/L (3-129); CREATININE 0.7 mg/dL (0.6-1.3); GFR ESTIMATE (CALCULATED) > 59 mL/min/
[2018-05-26 22:00] LABS: AST (GOT) 15 IU/L (2-34); UREA NITROGEN (BUN) 10 mg/dL (9-23)
[2018-05-26 22:01] LABS: ALT (GPT) 16 IU/L (3-49)
[2018-05-26] MEDS ORDERED: VENTOLIN HFA18 GM IH (22:17)
[2018-05-26] MEDS ORDERED: PREDNISONE20 MG PO (22:17)
[2018-05-26 22:29] VITALS: BP 144/92
== END 2018-05-26 22:31 | disposition home or self-care (01) ==
LOC: EME 20:03
PROVIDERS: Nurse Practitioner Family
DX: R06.02 Shortness of breath (principal); R05 Cough; K21.9 Gastro-esophageal reflux disease without esophagitis; J44.9 Chronic obstructive pulmonary disease, unspecified; F32.9 Major depressive disorder, single episode, unspecified; F31.9 Bipolar disorder, unspecified; F41.9 Anxiety disorder, unspecified; M48.00 Spinal stenosis, site unspecified; F17.200 Nicotine dependence, unspecified, uncomplicated; Z85.3 Personal history of malignant neoplasm of breast; Z85.42 Personal history of malignant neoplasm of other parts of uterus; Z87.19 Personal history of other diseases of the digestive system; Z91.040 Latex allergy status
CPT/HCPCS: 71046; 80053; 85027; 93005; 94640; 99281; 99284; J7512